=== PATIENT | male | born 1980 | race Caucasian/White ===

== ENCOUNTER 2017-04-06 22:44 | Observation (INO) | payer BC ==
[~2017-04-06] VITALS: Ht 182.9 cm; Wt 105.0 kg
--- NOTE | 2017-04-06 23:26 | EKG ---
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
[2017-04-06 23:29] LABS: BASO % 1 % (0-3); EOS # 0.1 x10^3/uL (0.0-0.7); EOS % 1 % (0-3); HEMATOCRIT 42.5 % (39.0-53.0); HEMOGLOBIN 15.3 g/dL (13.0-17.5); LYMPH # 2.6 x10^3/uL (1.0-4.8); LYMPH % 36 % (24-48); MEAN CORPUSCULAR HEMOGLOBIN 32 pg (25-35); MEAN CORPUSCULAR HGB CONC 36 g/dL (31-37); MEAN CORPUSCULAR VOLUME 90 fL (79-100); MONO # 0.4 x10^3/uL (0.0-1.1); MONO % 5 % (0-9); NEUT % 56 % (31-73); PLATELET COUNT 172 x10^3/uL (140-400); RED BLOOD COUNT 4.72 x10^6/uL (4.30-5.70); RED CELL DISTRIBUTION WIDTH 15.7 % (11.5-14.5); WHITE BLOOD COUNT 7.1 x10^3/uL (4.0-11.0)
[2017-04-06] MEDS ORDERED: IV NORMAL SALINE 1,000ML 1,000 ML IV SCH (23:44)
[2017-04-06] MEDS ORDERED: ASPIRIN 81 MG TAB.CHEW PO ONE (23:45)
[2017-04-06 23:55] LABS: ALBUMIN 3.7 g/dL (3.4-5.0); ALBUMIN/GLOBULIN RATIO 1.1 (1.0-1.7); CALCIUM 8.2 mg/dL (8.5-10.1); CREATININE 1.3 mg/dL (0.7-1.3); POTASSIUM 3.6 mmol/L (3.5-5.1); TOTAL PROTEIN 7.1 g/dL (6.4-8.2)
[2017-04-06 23:59] LABS: GFR 62.5
[2017-04-07 00:04] LABS: BASO # 0.1 x10^3/uL (0.0-0.2)
[2017-04-07] MEDS ORDERED: ASPIRIN ENTERIC COATED 81 MG TABLET.DR. PO ONE (00:19)
[2017-04-07 00:36] LABS: CREATINE KINASE 59 U/L (39-308)
[2017-04-07] MEDS ORDERED: IV NORMAL SALINE 1,000ML 1,000 ML IV SCH (00:41)
--- NOTE | 2017-04-07 00:41 | PHYS DOC ---
Adult General Chief Complaint Chief Complaint: CHEST PAIN HPI HPI Patient is a 36 year old male who presents with complaint of chest pain. Patient states that he has been having recurrent chest pain symptoms over the past month and states that they have become more frequent over the past several days. Patient states that he has been getting exertional tightness in the middle of his chest. Patient has had associated shortness of breath and diaphoresis with these symptoms. Patient has history of hypertension. Patient states that he has family history of congestive heart failure but is unaware of any history of myocardial infarction in his family. Patient states that the symptoms typically improve with rest. Patient has not had any recent cardiac stress testing or workup. 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 Patient states that the pain sometimes radiates into his left shoulder. Review of Systems Review of Systems Constitutional: Diaphoresis, denies fever or chills[] Eyes: Denies change in visual acuity, redness, or eye pain [] HENT: Denies nasal congestion or sore throat [] Respiratory: Shortness of breath[] Cardiovascular: Chest pain, denies edema[] GI: Denies abdominal pain, nausea, vomiting, bloody stools or diarrhea [] : Denies dysuria or hematuria [] Musculoskeletal: Denies back pain or joint pain [] Integument: Denies rash or skin lesions [] Neurologic: Denies headache, focal weakness or sensory changes [] Current Medications Current Medications Current Medications Medications (Trade) Dose Ordered Sig/Tommie Start Time Stop Time Status Last Admin Dose Admin Aspirin (Aspirin Enteric Coated) 81 mg STK-MED ONCE 04/07/17 00:19 04/07/17 00:20 DC Aspirin (Children'S Aspirin) 324 mg 1X ONCE 04/06/17 23:45 04/06/17 23:46 UNV 04/07/17 00:20 324 MG Sodium Chloride 1,000 ml @ 100 mls/hr Q10H 04/06/17 23:44 04/07/17 09:43 UNV 04/07/17 00:20 100 MLS/HR Allergies Allergies Allergies Coded Allergies Type Severity Reaction Last Updated Verified No Known Drug Allergies 04/06/17 No Physical Exam Physical Exam Constitutional: Well developed, well nourished, no acute distress, non-toxic appearance. [] HENT: Normocephalic, atraumatic, bilateral external ears normal, oropharynx moist, no oral exudates, nose normal. [] Eyes: PERRLA, EOMI, conjunctiva normal, no discharge. [] Neck: Normal range of motion, no tenderness, supple, no stridor. [] Cardiovascular:Heart rate regular rhythm, no murmur [] Lungs & Thorax: Bilateral breath sounds clear to auscultation [] Abdomen: Bowel sounds normal, soft, no tenderness, no masses, no pulsatile masses. [] Skin: Warm, dry, no erythema, no rash. [] Back: No tenderness, no CVA tenderness. [] Extremities: No tenderness, no cyanosis, no clubbing, ROM intact, no edema. [] Neurologic: Alert and oriented X 3, normal motor function, normal sensory function, no focal deficits noted. [] Current Patient Data Vital Signs Vital Signs Date Time Temp Pulse Resp B/P (MAP) Pulse Ox O2 Delivery O2 Flow Rate FiO2 04/07/17 01:03 85 18 116/71 (86) 98 Room Air 04/06/17 22:45 98.4 Lab Results Laboratory Tests Test 04/06/17 23:00 White Blood Count 7.1 x10^3/uL (4.0-11.0) Red Blood Count 4.72 x10^6/uL (4.30-5.70) Hemoglobin 15.3 g/dL (13.0-17.5) Hematocrit 42.5 % (39.0-53.0) Mean Corpuscular Volume 90 fL (79-100) Mean Corpuscular Hemoglobin 32 pg (25-35) Mean Corpuscular Hemoglobin Concent 36 g/dL (31-37) Red Cell Distribution Width 15.7 % (11.5-14.5) H Platelet Count 172 x10^3/uL (140-400) Neutrophils (%) (Auto) 56 % (31-73) Lymphocytes (%) (Auto) 36 % (24-48) Monocytes (%) (Auto) 5 % (0-9) Eosinophils (%) (Auto) 1 % (0-3) Basophils (%) (Auto) 1 % (0-3) Neutrophils # (Auto) 4.0 x10^3uL (1.8-7.7) Lymphocytes # (Auto) 2.6 x10^3/uL (1.0-4.8) Monocytes # (Auto) 0.4 x10^3/uL (0.0-1.1) Eosinophils # (Auto) 0.1 x10^3/uL (0.0-0.7) Basophils # (Auto) 0.1 x10^3/uL (0.0-0.2) Sodium Level 139 mmol/L (136-145) Potassium Level 3.6 mmol/L (3.5-5.1) Chloride Level 101 mmol/L (98-107) Carbon Dioxide Level 29 mmol/L (21-32) Anion Gap 9 (6-14) Blood Urea Nitrogen 14 mg/dL (8-26) Creatinine 1.3 mg/dL (0.7-1.3) Estimated GFR (Cockcroft-Gault) 62.5 BUN/Creatinine Ratio 11 (6-20) Glucose Level 117 mg/dL (70-99) H Calcium Level 8.2 mg/dL (8.5-10.1) L Total Bilirubin 2.0 mg/dL (0.2-1.0) H Aspartate Amino Transferase (AST) 30 U/L (15-37) Alanine Aminotransferase (ALT) 90 U/L (16-63) H Alkaline Phosphatase 106 U/L (46-116) Troponin I Quantitative < 0.017 ng/mL (0-0.055) Total Protein 7.1 g/dL (6.4-8.2) Albumin 3.7 g/dL (3.4-5.0) Albumin/Globulin Ratio 1.1 (1.0-1.7) EKG EKG Interpreted by me: Heart rate 72, sinus rhythm, normal intervals, normal axis, slight ST depression of approximately 1 mm in leads 3 and aVF, no reciprocal changes[] Radiology/Procedures Radiology/Procedures One view chest x-ray interpreted by me: No history, no effusions, normal cardiac silhouette[] Course & Med Decision Making Course & Med Decision Making Pertinent Labs and Imaging studies reviewed. (See chart for details) The patient was given full strength aspirin in the emergency department. Patient 's initial troponin was negative. Patient's HEART score is 4 due to highly suspicious symptoms, abnormalities on EKG, and known risk factors. This places patient in a moderate category for acute coronary syndrome. The patient requires admission to the hospital for rule out of myocardial ischemia. I spoke with Dr. Ram who accepted care patient in hospital. A consult was placed to Dr. Macias of cardiology to follow patient in hospital. Dragon Disclaimer Dragon Disclaimer This chart was dictated in whole or in part using Voice Recognition software in a busy, high-work load, and often noisy Emergency Department environment. It may contain unintended and wholly unrecognized errors or omissions. Departure Departure: Impression: Primary Impression: Angina pectoris Additional Impression: Hypertension Disposition: 09 ADMITTED INPATIENT Admitting Physician: Truong Ram Condition: STABLE Referrals: NON,STAFF (PCP) Problem Qualifiers Additional Impression: Hypertension Hypertension type: essential hypertension Qualified Codes: I10 - Essential ( primary) hypertension ELAINE LUTHER MD Apr 07, 2017 00:40
[2017-04-07] MEDS ORDERED: ACETAMINOPHEN 325 MG TABLET PO PRN (01:00)
[2017-04-07] MEDS ORDERED: ONDANSETRON PF 4 MG/2 ML VIAL. IV PRN (01:00)
[2017-04-07 02:29] LABS: AMPHETAMINE/METHAMPHETAMINE NEG (NEG); BARBITURATES NEG (NEG); BENZODIAZEPINES NEG (NEG); CANNABINOIDS NEG (NEG); COCAINE NEG (NEG); METHADONE NEG (NEG); OPIATES NEG (NEG); PHENCYCLIDINE NEG (NEG)
[2017-04-07 02:30] VITALS: BP 115/69
[2017-04-07 02:36] LABS: BACTERIA,URINE FEW /HPF (0-FEW); BILIRUBIN,URINE NEG (NEG); CLARITY,URINE CLEAR; COLOR,URINE YELLOW; GLUCOSE,URINE NEG (NEG); NITRITE,URINE NEG (NEG); RBC,URINE OCC /HPF (0-2); SQUAMOUS EPITHELIAL CELL,UR OCC /LPF; UROBILINOGEN,URINE 0.2 mg/dL (0.2 mg/dL); WBC,URINE OCC /HPF (0-4)
[2017-04-07] MEDS ORDERED: LISI1TAB3 PO (02:58)
[2017-04-07] MEDS ORDERED: METO-239 PO (02:58)
[2017-04-07] MEDS ORDERED: OMEP20TA63 PO (02:58)
[2017-04-07] MEDS ORDERED: NORT10CA PO (02:58)
--- NOTE | 2017-04-07 09:22 | RAD ---
Exam performed: One view chest. Indication: chest pain Date of Service: 04/07/2017 1:44 AM Comparison: None available. Single AP upright portable view chest findings: Cardiomediastinal silhouette is within limits of normal. No acute infiltrates, effusion or pneumothorax is detected. The bony structures are normal. Impression: No acute cardiopulmonary process is detected.
[2017-04-07 09:30] VITALS: BP 138/77
--- NOTE | 2017-04-07 09:52 | PDOC2 ---
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 He describes chest heaviness with associated dyspnea, diaphoresis and lightheadedness that occurs on exertion. He reports resolution of his symptoms with rest after about 20 min. He reports this has been occurring for several months but with increased frequency. He denies congestive symptoms, edema or syncope. He reports most of his symptoms seemed to start after an acute onset of rash and hives several months ago. He denies any determining factor for the rash and says he continues to have random outbreaks, generally improved with steroids. Past Medical History hypertension, chrons disease, significantly elevated KEVIN -probable lupus pending an appt with rheumatology, recurrent rash and hives - pending appt with dermatology Past Surgical History: Cholecystectomy, Colon Resection Family History hypertension Social History non smoker, no ETOH, no illicit drugs. 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 Current Medications Current Medications Aspirin (Children'S Aspirin) 324 mg 1X ONCE PO Last administered on 04/07/17 00:20; Start 04/06/17 at 23:45; Stop 04/07/17 at 01:11; Status DC Sodium Chloride 1,000 ml @ 100 mls/hr Q10H IV Last administered on 04/07/17 00:20; Start 04/06/17 at 23:44; Stop 04/07/17 at 08:12; Status DC Aspirin (Aspirin Enteric Coated) 81 mg STK-MED ONCE PO ; Start 04/07/17 at 00:19 ; Stop 04/07/17 at 00:20; Status DC Ondansetron HCl (Zofran) 4 mg PRN Q4HRS PRN IV NAUSEA/VOMITING; Start 04/07/17 at 01:00; Stop 04/08/17 at 00:59 Fentanyl Citrate (Fentanyl 2ml Vial) 50 mcg PRN Q2HR PRN IV PAIN; Start at 01:00; Stop 04/08/17 at 00:59 Sodium Chloride 1,000 ml @ 125 mls/hr Q8H IV Last administered on 04/07/17t 00 :41; Start 04/07/17 at 00:41; Stop 04/08/17 at 00:40 Acetaminophen (Tylenol) 650 mg PRN Q4HRS PRN PO FEVER; Start 04/07/17 at 01:00 ; Stop 04/08/17 at 00:59 Active Scripts Active Reported Nortriptyline Hcl 10 Mg Capsule 1 Cap PO QHS Prilosec Otc (Omeprazole Magnesium) 20 Mg Tablet.dr 1 Tab PO DAILY Lisinopril-Hctz 10-12.5 Mg Tab (Lisinopril/Hydrochlorothiazide) 1 Each Tablet 1 Tab PO DAILY Metoprolol Succinate ( Xl ) (Metoprolol Succinate) 25 Mg Tab.er.24h 1 Tab PO DAILY Allergies: Coded Allergies: No Known Drug Allergies (Unverified , 04/06/17) Review of System as per HPI General: Alert, Oriented X3, Cooperative, No acute distress HEENT: Atraumatic, EOMI, Mucous membr. moist/pink Lungs: Clear to auscultation, Normal air movement Heart: Regular rate, Normal S1, Normal S2 Abdomen: Normal bowel sounds, Soft Extremities: No cyanosis, No edema, Normal pulses Neuro: Normal speech, Strength at 5/5 X4 ext Psych/Mental Status: Mental status NL, Mood NL VITALS Vital Signs Date Time Temp Pulse Resp B/P (MAP) Pulse Ox O2 Delivery O2 Flow Rate FiO2 04/07/17 08:00 Room Air 04/07/17 03:00 80 04/07/17 02:30 18 115/69 (84) 98 04/06/17 22:45 98.4 Labs Laboratory Tests Test 04/06/17 01:50 04/06/17 23:00 04/07/17 05:38 Urine Collection Type Unknown Urine Color Yellow Urine Clarity Clear Urine pH 5.5 Urine Specific [place] 1.020 Urine Protein Neg (NEG-TRACE) Urine Glucose (UA) Neg mg/dL (NEG) Urine Ketones (Stick) Neg mg/dL (NEG) Urine Blood Neg (NEG) Urine Nitrite Neg (NEG) Urine Bilirubin Neg (NEG) Urine Urobilinogen Dipstick 0.2 mg/dL (0.2 mg/dL) Urine Leukocyte Esterase Neg (NEG) Urine RBC Occ /HPF (0-2) Urine WBC Occ /HPF (0-4) Urine Squamous Epithelial Cells Occ /LPF Urine Bacteria Few /HPF (0-FEW) Urine Mucus Slight /LPF Urine Opiates Screen Neg (NEG) Urine Methadone Screen Neg (NEG) Urine Barbiturates Neg (NEG) Urine Phencyclidine Screen Neg (NEG) Urine Amphetamine/Methamphetamine Neg (NEG) Urine Benzodiazepines Screen Neg (NEG) Urine Cocaine Screen Neg (NEG) Urine Cannabinoids Screen Neg (NEG) Urine Ethyl Alcohol Neg (NEG) White Blood Count 7.1 x10^3/uL (4.0-11.0) Red Blood Count 4.72 x10^6/uL (4.30-5.70) Hemoglobin 15.3 g/dL (13.0-17.5) Hematocrit 42.5 % (39.0-53.0) Mean Corpuscular Volume 90 fL (79-100) Mean Corpuscular Hemoglobin 32 pg (25-35) Mean Corpuscular Hemoglobin Concent 36 g/dL (31-37) Red Cell Distribution Width 15.7 % (11.5-14.5) Platelet Count 172 x10^3/uL (140-400) Neutrophils (%) (Auto) 56 % (31-73) Lymphocytes (%) (Auto) 36 % (24-48) Monocytes (%) (Auto) 5 % (0-9) Eosinophils (%) (Auto) 1 % (0-3) Basophils (%) (Auto) 1 % (0-3) Neutrophils # (Auto) 4.0 x10^3uL (1.8-7.7) Lymphocytes # (Auto) 2.6 x10^3/uL (1.0-4.8) Monocytes # (Auto) 0.4 x10^3/uL (0.0-1.1) Eosinophils # (Auto) 0.1 x10^3/uL (0.0-0.7) Basophils # (Auto) 0.1 x10^3/uL (0.0-0.2) Sodium Level 139 mmol/L (136-145) Potassium Level 3.6 mmol/L (3.5-5.1) Chloride Level 101 mmol/L (98-107) Carbon Dioxide Level 29 mmol/L (21-32) Anion Gap 9 (6-14) Blood Urea Nitrogen 14 mg/dL (8-26) Creatinine 1.3 mg/dL (0.7-1.3) Estimated GFR (Cockcroft-Gault) 62.5 BUN/Creatinine Ratio 11 (6-20) Glucose Level 117 mg/dL (70-99) Calcium Level 8.2 mg/dL (8.5-10.1) Magnesium Level 2.0 mg/dL (1.8-2.4) Total Bilirubin 2.0 mg/dL (0.2-1.0) Aspartate Amino Transf (AST/SGOT) 30 U/L (15-37) Alanine Aminotransferase (ALT/SGPT) 90 U/L (16-63) Alkaline Phosphatase 106 U/L (46-116) Creatine Kinase 59 U/L (39-308) Creatine Kinase MB (Mass) < 0.5 ng/mL (0.0-3.6) Creatine Kinase MB Relative Index 0.8 % (0-4) Troponin I Quantitative < 0.017 ng/mL (0-0.055) < 0.017 ng/mL (0-0.055) Total Protein 7.1 g/dL (6.4-8.2) Albumin 3.7 g/dL (3.4-5.0) Albumin/Globulin Ratio 1.1 (1.0-1.7) Images EKG - sinus rhythm, early transition, nonspecific st/t abn CXR - no acute abn Assessment/Plan 1. chest pain suspicious for exertional angina with abnormal EKG and risk factors of hypertension and prob Lupus - Shell remain negative, plan for transfer to [facility] for cardiac cath later this afternoon. 2. hypertension - resume home meds 3. ? lipid status - lipid panel pending Problems: DEWAYNE OLPEZ MD 04/09/17 1233: CONSULT Allergies: Coded Allergies: No Known Drug Allergies (Unverified , 04/06/17) Assessment/Plan Pt. seen and examined. Agree with above SURVEILLANCE MONITOR note. Pt. sent to [facility] for cardiac cath. Pls see reports at [facility]. late entry for 04/07/2017. Problems: SILVERIO LOCKHART APRN Apr 07, 2017 09:52 DEWAYNE LOPEZ MD Apr 09, 2017 12:33
[2017-04-07] MEDS ORDERED: DICY10CA3 PO (09:56)
[2017-04-07] MEDS ORDERED: NORT25CA PO (09:56)
[2017-04-07] MEDS ORDERED: METO50TA2 PO ×2 (09:56)
[2017-04-07] MEDS ORDERED: LISI1TAB5 PO (09:56)
[2017-04-07] MEDS ORDERED: BUTA1TAB23 PO (09:56)
[2017-04-07] MEDS ORDERED: ONDA4TAB12 PO (09:56)
[2017-04-07] MEDS ORDERED: HYDR-2762 PO (09:57)
[2017-04-07] MEDS ORDERED: ONDANSETRON ODT 4 MG TAB.RAPDIS PO PRN (10:30)
[2017-04-07] MEDS ORDERED: HYDROcodone/APAP 7.5/325MG 1 TAB TABLET PO PRN (10:30)
[2017-04-07] MEDS ORDERED: BUTALB/APAP/CAFEIN 50/325/40MG TABLET. PO PRN (10:30)
[2017-04-07] MEDS ORDERED: DICYCLOMINE HCL 10 MG CAPSULE PO SCH (10:30)
[2017-04-07] MEDS ORDERED: NON FORMULARY ITEM (Omeprazole Magnesium (Prilosec Otc) 1 TAB) PO SCH (11:00)
[2017-04-07] MEDS ORDERED: METOPROLOL TART IMMED RELEASE 50 MG TABLET PO SCH ×3 (11:00→21:00)
[2017-04-07] MEDS ORDERED: hydroCHLOROthiazide 12.5 MG CAPSULE PO SCH (11:00)
[2017-04-07] MEDS ORDERED: LISINOPRIL 20 MG TABLET PO SCH (11:00)
[2017-04-07] MEDS ORDERED: PANTOPRAZOLE 40 MG TABLET. PO SCH (11:00)
[2017-04-07 11:39] VITALS: BP 138/77
--- NOTE | 2017-04-07 13:35 | SSS ---
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 He has been complaining of recurrent episode of chest pain that he describes as chest tightness and pain that he rates about 5/10 in severity, it lasted up to 20 minutes or longer, associated with shortness of breath, diaphoresis, nausea, vomiting. This has been going on for almost a month now and apparently finally he was persuaded by his primary care physician to come to the Emergency Room, where he was evaluated. His EKG showed that he was in sinus rhythm with nonspecific ST-T changes. He had 2 sets of cardiac enzymes that were normal and was admitted for further evaluation by the Cardiology team. PAST MEDICAL HISTORY: Significant for hypertension for the last almost 3 years, Crohn disease diagnosed 3 years ago. He is known to have high antinuclear antibody, probably because of lupus and apparently he has an appointment to be seen by a pre owned sales consultant as well a addictions counselor assistant. PAST SURGICAL HISTORY: Significant for partial colectomy, cholecystectomy, appendectomy. He underwent EGD twice and colonoscopy twice. ALLERGIES: He has no known drug allergies. MEDICATIONS: He is currently on the following medications: He is on Uicjzaompv-zslqqmwxbchaz-bnrvqapc 1 tablet every 6 hours p.r.n. for headache, dicyclomine 1 to 2 tablets every 6 hours as needed for abdominal pain and cramping, hydrocodone/APAP 7.5/325 one to two tablets every 4 to 6 hours, lisinopril/hydrochlorothiazide 20/12.5 mg daily for hypertension, metoprolol 50 mg in the morning and 100 mg at bedtime, nortriptyline 25 mg 2 capsules at bedtime, omeprazole 20 mg at bedtime, ondansetron 4 mg every 8 hours. FAMILY HISTORY: He has one older sister, who is known to have hypertension. He has a younger sister and brother, who are healthy. His father is alive at the age of 60 and is known to have hypertension. Mother is alive at the age of 57 and has hypertension and diabetes. SOCIAL HISTORY: He is , never smoked, does not drink alcohol or use any recreational drugs. 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 REVIEW OF SYSTEMS: The patient denied any blurring of vision, cataract, glaucoma or macular degeneration. Denied any earache, tinnitus or sensorineural deafness. Denied any nosebleeds, stuffy nose or postnasal drip. Denied any sore throat, sore tongue, toothache, hoarseness of voice or difficulty swallowing. Denied any nausea, vomiting. Did complain of diarrhea because of his Crohn disease. Denied any hematemesis, melena or hematochezia. Denied any dysuria, frequency or hematuria. Did complain of chest pain and shortness of breath. Did complain also of dizziness, lightheadedness, but no vertigo, no chills, rigors or fever. PHYSICAL EXAMINATION: GENERAL: On arrival to the Emergency Room, he was pale, but no jaundice, cyanosis, or thyromegaly. No limb edema. VITAL SIGNS: His heart rate was 83, blood pressure was 121/69, temperature was 98.4, respiratory rate was 22 and oxygen saturation was 99% on room air. HEAD, EYES, EARS, NOSE AND THROAT: Showed normocephalic, atraumatic. NECK: Supple. HEART: Showed normal first and second heart sounds with no gallop, rub or murmur. CHEST: Clear to auscultation. No crepitation or rhonchi. ABDOMEN: Distended, soft, nontender. No guarding or rigidity. No organomegaly. All hernial orifices are intact. Bowel sounds are normal. NEUROLOGIC: He was awake, alert, responding appropriately. All cranial nerves are intact. EXTREMITIES: He moves extremities without difficulty. He ambulates without assistance or assistive devices. LABORATORY DATA: Showed a white cell count of 7100, hemoglobin 15, hematocrit 42, MCV 90 and platelet count of 172,000 with a manual differential showed 56% polymorphs, lymphocytes and 5% monocytes. His chemistry showed a serum sodium of 139, potassium 3.6, chloride 101, bicarbonate 29, anion gap of 9, BUN 14, creatinine 1.3, estimated GFR was 62 mL per minute. His glucose was 117. Calcium was 8.2, magnesium 2. Total bilirubin 2 mg, AST and alkaline phosphatase normal, ALT slightly elevated. His CK was 90. Two sets of troponin were less than 0.017. His total protein was 7.1, albumin 3.7. Urinalysis was unremarkable and essentially negative and urine toxicology screen was negative. IMAGING: His chest x-ray showed that the cardiomediastinal silhouette is within limits of normal. No acute infiltrate, effusion or pneumothorax detected. The bony structures are normal. His EKG showed that he was in sinus rhythm with diffuse nonspecific ST-T changes. ASSESSMENT AND PLAN: Apparently, the patient was evaluated by the Cardiology team and given the chest pain that is suspicious for exertional angina and abnormal EKG and risk factors, they recommended transferring the patient to [facility] for cardiac catheterization later this tonight. He has also hypertension, questionable systemic lupus erythematosus, high antinuclear antibody. His lipid status is not known, so we ordered a lipid profile for tomorrow. RUBY GARZA MD DR: ZAINAB/jose JOB#: [id number] / [id number]
[2017-04-07 14:48] LABS: CHOLESTEROL 134 mg/dL (0-200); HDLC 19 mg/dL (40-60); TRIGLYCERIDES 910 mg/dL (0-150); VLDLC 182 mg/dL (0-40)
[2017-04-07] MEDS ORDERED: NORTRIPTYLINE 25 MG CAPSULE PO SCH (21:00)
[2017-04-08] MEDS ORDERED: NON FORMULARY ITEM (Lisinopril/Hydrochlorothiazide (Lisinopril-Hctz 20-12.5 Mg Tab) 1 TAB) PO SCH (09:00)
== END 2017-04-07 11:50 | disposition short-term general hospital (02) ==
LOC: ER 22:44 → ICU 04-07 00:13 → INTOOBSV 04-07 00:13
PROVIDERS: ADMIT Family Medicine; ATTEND Family Medicine
DX: R07.89 Other chest pain (principal); I10 Essential (primary) hypertension; K50.90 Crohn's disease, unspecified, without complications; Z82.49 Family history of ischemic heart disease and other diseases of the circulatory system; Z83.3 Family history of diabetes mellitus
CPT/HCPCS: 36415; 71010; 80053; 80061; 80307; 81001; 82553; 83735; 84484; 85025; 87641; 93005; 96360; 96361; 99285; G0378; G0379; G0479; J7030